=== PATIENT | female | born 1985 | race Two or more races ===

== ENCOUNTER 2016-07-13 12:22 | Emergency (ER) | payer MEDICAID ==
[2016-07-13] MEDS ORDERED: IBUPROFEN 800 MG TABLET PO ONE (12:40)
--- NOTE | 2016-07-13 12:49 | ER Document Report ---
ED Extremity Problem, Lower - General Chief Complaint: Ankle Pain Stated Complaint: RIGHT ANKLE PAIN Time Seen by Provider: 07/13/16 12:40 Mode of Arrival: Wheelchair Information source: Patient Notes: 30-year-old female presents to ED for pain in her right foot and ankle. 2 days ago with pain in her ankle and foot and this has progressed over the last 2 days so that now she is not able to walk it. She does have a history of psoriatic arthritis a history of a broken ankle in the past on the side TRAVEL OUTSIDE OF THE [place] IN LAST 30 DAYS: No - HPI Patient complains to provider of: Pain Location: Ankle, Foot Occurred: Other - 2 days Onset/Duration: Gradual, Worse Quality of pain: Achy, Throbbing Severity: Severe Pain Level: 5 Context: Other - What is going on she states she has not injured Recent injury: No Exacerbated by: Movement, Walking Relieved by: Nothing - Related Data Allergies/Adverse Reactions: No Known Allergies Allergy (Verified 03/24/13 11:58) Past Medical History - General Information source: Patient - Social History Smoking Status: Never Smoker Cigarette use (# per day): No Chew tobacco use (# tins/day): No Smoking Education Provided: No Frequency of alcohol use: None Drug Abuse: None Lives with: Family Family History: Reviewed & Not Pertinent Patient has suicidal ideation: No Patient has homicidal ideation: No - Past Medical History Cardiac Medical History: Reports: None Pulmonary Medical History: Reports: Hx Asthma EENT Medical History: Reports: None Neurological Medical History: Reports: None Endocrine Medical History: Reports: None Renal/ Medical History: Reports: None Malignancy Medical History: Reports: None GI Medical History: Reports: Hx Gastroesophageal Reflux Disease Musculoskeltal Medical History: Reports Hx Arthritis - psoriatic arthritis, Reports Hx Musculoskeletal Deformity Skin Medical History: Reports Hx Psoriasis Psychiatric Medical History: Reports: None Traumatic Medical History: Reports: Hx Fractures - right ankle Infectious Medical History: Reports: None Past Surgical History: Reports: Hx Cholecystectomy, Hx Orthopedic Surgery - ORIF right ankle -02/08/13 - Immunizations Hx Diphtheria, Pertussis, Tetanus Vaccination: Yes Review of Systems - Review of Systems Constitutional: No symptoms reported EENT: No symptoms reported Cardiovascular: No symptoms reported Respiratory: No symptoms reported Gastrointestinal: No symptoms reported Genitourinary: No symptoms reported Female Genitourinary: No symptoms reported Musculoskeletal: Ankle swelling - pain Skin: No symptoms reported Hematologic/Lymphatic: No symptoms reported Neurological/Psychological: No symptoms reported -: Yes All other systems reviewed and negative Physical Exam - Vital signs Vitals: Temp Pulse Resp BP Pulse Ox 98.2 F 104 H 16 143/90 H 98 07/13/16 12:24 07/13/16 12:24 07/13/16 12:24 07/13/16 12:24 07/13/16 12:24 Interpretation: Normal - General General appearance: Appears well, Alert - HEENT Head: Normocephalic, Atraumatic Eyes: Normal Pupils: PERRL - Respiratory Respiratory status: No respiratory distress Chest status: Nontender Breath sounds: Normal Chest palpation: Normal - Cardiovascular Rhythm: Regular Heart sounds: Normal auscultation Murmur: No - Abdominal Inspection: Normal Distension: No distension Bowel sounds: Normal Tenderness: Nontender Organomegaly: No organomegaly - Back Back: Normal, Nontender - Extremities General upper extremity: Normal inspection, Nontender, Normal color, Normal ROM , Normal temperature General lower extremity: Normal color, Normal temperature. No: Fariba's sign Ankle: Tender, Edema, Limited ROM, Unable to bear weight Foot: Tender, No evidence of FB - Neurological Neuro grossly intact: Yes Cognition: Normal Orientation: AAOx4 Umair Coma Scale Eye Opening: Spontaneous Umair Coma Scale Verbal: Oriented [place] Coma Scale Motor: Obeys Commands Umair Coma Scale Total: 15 Speech: Normal Motor strength normal: LUE, RUE, LLE, RLE Sensory: Normal - Psychological Associated symptoms: Normal affect, Normal mood - Skin Skin Temperature: Warm Skin Moisture: Dry Skin Color: Normal Course - Re-evaluation Re-evalutation: 07/13/16 14:11 X-rays discussed with patient and family. Patient was given a written report of the x-rays and instructed to follow-up with podiatry. Patient given instructions on foot and ankle exercises as well as use of inflammatories for her pain. - Vital Signs Vital signs: Temp Pulse Resp BP Pulse Ox 98.2 F 104 H 16 143/90 H 98 07/13/16 12:24 07/13/16 12:24 07/13/16 12:24 07/13/16 12:24 07/13/16 12:24 - Diagnostic Test Radiology reviewed: Image reviewed, Reports reviewed Discharge - Discharge Clinical Impression: Heel spur Qualifiers: Laterality: right Qualified Code(s): M77.31 - Calcaneal spur, right foot Foot arch pain Qualifiers: Laterality: right Qualified Code(s): M79.671 - Pain in right foot Condition: Stable Disposition: HOME, SELF-CARE Instructions: Exercises for the Foot Muscles ([facility]) Additional Instructions: Plantar Fasciitis or Heel Spur Plantar fasciitis is an inflammation of a ligament on the underside of the foot. It can be caused by injury, overuse such as running, or poorly fitting shoes. There may be a bone spur on the heel if inflammation has persisted a long time. Plantar fasciitis is treated with stretching exercises and antiinflammatory medicine. More severe cases may require injection of cortisone. It may take several weeks to get better. If nothing gives relief, an operation to remove the heel spur may help. Call or return if there is redness, increasing pain, swelling, fever, or any other new symptoms. Anti-Inflammatory Medication You have received a prescription for an antiinflammatory agent. This is an excellent, safe drug for pain control. In addition, it has potent antiinflammatory effects which are beneficial, especially in the treatment of injuries, arthritis, or tendonitis. It's best to take this medicine with food. Persons with ulcer disease or allergy to aspirin should notify their physician of this before taking this drug. Take the medication exactly as prescribed. Don't take additional doses unless instructed to do so by your doctor. If you develop wheezing, shortness of breath, hives, faintness, stomach pain, vomiting, or dark black stools, return for re-evaluation at once. Ankle Exercise Program To restore the ankle to normal, it's important to strengthen the muscles that support it -- especially those that lift the foot upward. Good muscle tone will keep stress off the injury while it heals. EARLY - Once the doctor allows you to walk on the ankle, you can begin. Lean your back against a wall. Standing on your heels, lift the balls of both feet up, hold a second, then back down. Work up to 100 repetitions. Next, using the wall for balance, stand on one foot. Lift the heel up, then down. Work up to 100 repetitions for each foot. BALANCE TRAINING - To retrain the ankle to react to "tipping", stand on one foot for two minutes. Go from flat-footed to standing on the toes and back again slowly. Repeat with the other foot. LATER - When your ankle has regained full motion and you're walking pain- free, begin exercise against resistance. In a sitting position, pull the top of the foot towards you against resistance 20 times. Use either elastic material or a weight attached to the toes. Swing the knee so the foot is to the side of the body, and repeat. FOLLOW-UP CARE: If you have been referred to a physician for follow-up care, call the physician s office for an appointment as you were instructed or within the next two days. If you experience worsening or a significant change in your symptoms, notify the physician immediately or return to the Emergency Department at any time for re-evaluation. Forms: Elevated Blood Pressure, Return to Work Referrals: FRANCIS HDZ MD [Primary Care Provider] - Follow up as needed PRESLEY MENSAH DPM [ACTIVE STAFF] - Follow up as needed
--- NOTE | 2016-07-13 13:24 | RADIOLOGY REPORT (SQ) ---
EXAM DESCRIPTION: FOOT RIGHT COMPLETE COMPLETED DATE/TIME: 07/13/2016 1:11 pm REASON FOR STUDY: pain and injury COMPARISON: None. NUMBER OF VIEWS: Three views. TECHNIQUE: AP, lateral and oblique radiographic images acquired of the right foot. LIMITATIONS: None. FINDINGS: MINERALIZATION: Normal. BONES: No acute fracture or dislocation. Heel spur. No worrisome bone lesions. JOINTS: No effusions. SOFT TISSUES: No soft tissue swelling. No foreign body. OTHER: No other significant finding. IMPRESSION: HEEL SPUR. NO RADIOGRAPHIC EVIDENCE OF ACUTE INJURY. TECHNICAL DOCUMENTATION: JOB ID: [id number]- All Rights Reserved
--- NOTE | 2016-07-13 13:25 | RADIOLOGY REPORT (SQ) ---
EXAM DESCRIPTION: ANKLE RIGHT COMPLETE COMPLETED DATE/TIME: 07/13/2016 1:11 pm REASON FOR STUDY: pain and injury COMPARISON: 02/07/2013. NUMBER OF VIEWS: Three views. TECHNIQUE: AP, lateral, and oblique radiographic images acquired of the right ankle. LIMITATIONS: None. FINDINGS: MINERALIZATION: Normal. BONES: No acute fracture or dislocation. Hardware in the distal tibia fibula. No worrisome bone les ions. JOINTS: No effusions. SOFT TISSUES: No soft tissue swelling. No foreign body. OTHER: No other significant finding. IMPRESSION: SURGICAL CHANGES WITH HARDWARE. NO APPARENT ACUTE FINDINGS. TECHNICAL DOCUMENTATION: JOB ID: [id number] [employer]- All Rights Reserved
[2016-07-13 14:40] VITALS: BP 136/89
== END 2016-07-13 14:18 | disposition home or self-care (01) ==
LOC: ER 12:22
DX: M77.31 Calcaneal spur, right foot (principal); L40.50 Arthropathic psoriasis, unspecified; M79.671 Pain in right foot; M25.571 Pain in right ankle and joints of right foot; J45.909 Unspecified asthma, uncomplicated; Z87.81 Personal history of (healed) traumatic fracture; Z98.890 Other specified postprocedural states
CPT/HCPCS: 99283

== ENCOUNTER 2016-12-12 20:45 | Emergency (ER) | payer MEDICAID ==
[2016-12-12 21:12] VITALS: BP 147/98
[2016-12-12] MEDS ORDERED: LIDOCAINE 2% VISCOUS SOLN 20 ML UDCUP PO ONE (22:12)
--- NOTE | 2016-12-12 22:16 | ER Document Report ---
HPI - HPI Pain Level: 5 Notes: Patient is a 30-year-old female who presents ED complaining of dental pain to # 142-3 days. Patient states that she has had issues with this tooth before he is a filling fell out. Patient has a dental appointment scheduled for next Thursday. She has not noticed any obvious abscess or drainage. Patient states that she has noticed some swelling to the area however. She still eating and drinking without difficulties. She is using [id number] meds for her symptoms. She denies any drug allergies or other significant past medical history. Patient denies any IV drug use. Denies any history of abscesses. Denies any headache, fever, head injury, neck pain, hoarseness, drooling, URI, sore throat, chest pain, palpitations, syncope, cough, shortness of breath, wheeze, dyspnea, abdominal pain, nausea/vomiting/diarrhea, urinary retention, dysuria, hematuria, or rash. - ROS Notes: REVIEW OF SYSTEMS: CONSTITUTIONAL : Denies fever, chills, or sweats. Denies recent illness. EENT: see hpi CARDIOVASCULAR: Denies chest pain. Denies palpitations or racing or irregular heart beat. Denies ankle edema. RESPIRATORY: Denies cough, cold, or chest congestion. Denies shortness of breath, difficulty breathing, or wheezing. GASTROINTESTINAL: Denies abdominal pain or distention. Denies nausea, vomiting , or diarrhea. Denies blood in vomitus, stools, or per rectum. Denies black, tarry stools. Denies constipation. GENITOURINARY: Denies difficulty urinating, painful urination, burning, frequency, blood in urine, or discharge. MUSCULOSKELETAL: Denies back or neck pain or stiffness. Denies joint pain or swelling. SKIN: Denies rash, lesions or sores. NEUROLOGICAL: Denies confusion or altered mental status. Denies passing out or loss of consciousness. Denies dizziness or lightheadedness. Denies headache. Denies weakness or paralysis or loss of use of either side. Denies problems with gait or speech. Denies sensory loss, numbness, or tingling. Denies seizures. PSYCHIATRIC: Denies anxiety or stress. Denies depression, suicidal ideation, or homicidal ideation. ALL OTHER SYSTEMS REVIEWED AND NEGATIVE. Dictation was performed using [employer] voice recognition software - REPRODUCTIVE Reproductive: DENIES: : - DERM Skin Color: Normal, [place] Past Medical History - Social History Smoking Status: Unknown if Ever Smoked Family History: Reviewed & Not Pertinent Patient has suicidal ideation: No Patient has homicidal ideation: No Pulmonary Medical History: Reports: Hx Asthma Denies: Hx Tuberculosis Renal/ Medical History: Denies: Hx Peritoneal Dialysis GI Medical History: Reports: Hx Gastroesophageal Reflux Disease Musculoskeltal Medical History: Reports Hx Arthritis - psoriatic arthritis, Reports Hx Musculoskeletal Deformity Skin Medical History: Reports Hx Psoriasis Traumatic Medical History: Reports: Hx Fractures - right ankle Past Surgical History: Reports: Hx Cholecystectomy, Hx Orthopedic Surgery - ORIF right ankle -02/08/13 - Immunizations Hx Diphtheria, Pertussis, Tetanus Vaccination: Yes Vertical Provider Document - CONSTITUTIONAL Agree With Documented VS: Yes Notes: PHYSICAL EXAMINATION: GENERAL: Well-appearing, well-nourished and in no acute distress. HEAD: Atraumatic, normocephalic. EYES: Pupils equal round and reactive to light, extraocular movements intact, sclera anicteric, conjunctiva are normal. ENT: EAC clear b/l. TM's intact b/l without erythema, fluid, or perforation. Nares patent and without discharge. oropharynx clear without exudates. No tonsilar hypertrophy or erythema. Moist mucous membranes. No sinus tenderness. Uvula midline. No palatine shift. No tongue protrusion. No respiratory compromise. Mouth: Poor dentition. + mild decay and mild gingivitis. No obvious abscess or discharge noted. No facial swelling. + tenderness to tooth/gum #14. NECK: Normal range of motion, supple without lymphadenopathy. No rigidity/ meningismus. LUNGS: Breath sounds clear to auscultation bilaterally and equal. No wheezes rales or rhonchi. HEART: Regular rate and rhythm without murmurs, rubs, gallops. NEUROLOGICAL: Cranial nerves grossly intact. Normal speech, normal gait. Normal sensory, motor exams PSYCH: Normal mood, normal affect. SKIN: Warm, Dry, normal turgor, no rashes or lesions noted. - INFECTION CONTROL TRAVEL OUTSIDE OF THE [place] IN LAST 30 DAYS: No - RESPIRATORY O2 Sat by Pulse Oximetry: 98 Course - Re-evaluation Re-evalutation: 12/12/16 22:14 Patient is an afebrile, well-hydrated, 30-year-old female who presents the ED with dental pain, infection versus nerve etiology. Vitals are stable. PE is otherwise unremarkable at this time. Viscous lidocaine given today. I will send her home with a prescription for penicillin as well. Low suspicion for any meningitis, sepsis, peritonsillar/pharyngeal abscess, respiratory compromise , Mani's, temporal arteritis, or other emergent systemic condition at this time. Patient is aware this condition can change from initial presentation and she needs to monitor symptoms closely. Conservative measures otherwise for symptoms. Keep dental appointment next thursday. Recheck with your PCM next week as well. Return to the ED with any worsening/concerning symptoms otherwise as reviewed in discharge. Patient is in agreement. - Vital Signs Vital signs: Temp Pulse Resp BP Pulse Ox 98.5 F 86 12 147/98 H 98 12/12/16 21:08 12/12/16 21:08 12/12/16 21:08 12/12/16 21:08 12/12/16 21:08 Discharge - Discharge Clinical Impression: Toothache Condition: Stable Disposition: HOME, SELF-CARE Instructions: [facility], Toothache ([facility]), Penicillin V K ([facility]), Dentist Additional Instructions: Page and floss twice daily Maintain fluid intake Take antibiotics as directed Mouthwash, salt water gargles, peroxide rinse as needed Tylenol/ibuprofen as needed Recheck with PCM in 3-5 days keep appointment with dentist next thursday Return to the ED with any worsening symptoms and/or development of fever, headache, facial swelling, swelling of lips/tongue/throat, trouble swallowing, drooling, hoarseness, neck pain/stiffness, chest pain, palpitations, syncope, shortness of breath, trouble breathing, abdominal pain, n/v/d, numbness/tingling , or other worsening symptoms that are concerning to you. Prescriptions: Penicillin V Potassium [Penicillin Vk 500 mg Tablet] 500 mg PO BID #20 tablet Referrals: BELL HDZ DO [Primary Care Provider] - Follow up in 3-[address] [facility] [Provider Group] - Follow up as needed
== END 2016-12-12 22:44 | disposition home or self-care (01) ==
LOC: ER 20:45
DX: K02.9 Dental caries, unspecified (principal); K05.10 Chronic gingivitis, plaque induced; K08.89 Other specified disorders of teeth and supporting structures; J45.909 Unspecified asthma, uncomplicated
CPT/HCPCS: 99282; J3490

== ENCOUNTER 2017-01-10 22:42 | Emergency (ER) | payer MEDICAID ==
--- NOTE | 2017-01-10 23:36 | ER Document Report ---
HPI - HPI Patient complains to provider of: numbness in left arm, sharp pain in chest Onset: Other - 2 weeks Onset/Duration: Intermittent Pain Level: 4 Context: 31 obese non hormone ex smoker, non drugs, rare etoh, unemployed female with hx asthma, non dm, non htn came to ER, dropped off by friend due to whole left arm numbness that comes on at 12:00 daily, sometimes when she wakes up. Went away 4 times during the past 2 weeks spontaneously. Also c/o left upper restrosternal sharp chest pain since 12:00 today sitting watching a movie. Worse with breathing deep. surgieries: right ankle, fx repair. Came in tonight because the chest pain got worse at 4 pm while cooking dinner. No fever. No cough. No recent illness. FH: DM, aunt stents age 61. She wants to make sure she is not having a "silent heart attack". - REPRODUCTIVE Reproductive: DENIES: : Past Medical History - Social History Family History: Reviewed & Not Pertinent Pulmonary Medical History: Reports: Hx Asthma Denies: Hx Tuberculosis Renal/ Medical History: Denies: Hx Peritoneal Dialysis GI Medical History: Reports: Hx Gastroesophageal Reflux Disease Musculoskeltal Medical History: Reports Hx Arthritis - psoriatic arthritis, Reports Hx Musculoskeletal Deformity Skin Medical History: Reports Hx Psoriasis Traumatic Medical History: Reports: Hx Fractures - right ankle Past Surgical History: Reports: Hx Cholecystectomy, Hx Orthopedic Surgery - ORIF right ankle -02/08/13 - Immunizations Hx Diphtheria, Pertussis, Tetanus Vaccination: Yes Vertical Provider Document - INFECTION CONTROL TRAVEL OUTSIDE OF THE [place] IN LAST 30 DAYS: No
[2017-01-11] MEDS ORDERED: ASPIRIN 81 MG TABLET, CHEWABLE PO ONE (00:08)
--- NOTE | 2017-01-11 00:09 | ER Document Report ---
ED General - General Chief Complaint: Weakness Stated Complaint: CHEST PAIN,NUMB LEFT ARM Time Seen by Provider: 01/10/17 23:36 Mode of Arrival: Ambulatory Information source: Patient Notes: 31 obese non hormone ex smoker, non drugs, rare etoh, unemployed female with hx asthma, non dm, non htn came to ER, dropped off by friend due to whole left arm numbness that comes on at 12:00 daily, sometimes when she wakes up. Went away 4 times during the past 2 weeks spontaneously. Also c/o left upper restrosternal sharp chest pain since 12:00 today sitting watching a movie. Worse with breathing deep, movement. surgieries: right ankle, fx repair. Came in tonight because the chest pain got worse at 4 pm while cooking dinner. No fever. No cough. No shortness of breath. No recent illness. FH: DM, aunt stents age 61. She wants to make sure she is not having a "silent heart attack". PCP: DR. Tristan Hdz. TRAVEL OUTSIDE OF THE [place] IN LAST 30 DAYS: No - Related Data Allergies/Adverse Reactions: No Known Allergies Allergy (Verified 01/11/17 01:39) Past Medical History - General Information source: Patient - Social History Smoking Status: Former Smoker Frequency of alcohol use: None Drug Abuse: None Lives with: Family Family History: Reviewed & Not Pertinent Pulmonary Medical History: Reports: Hx Asthma Denies: Hx Tuberculosis Renal/ Medical History: Denies: Hx Peritoneal Dialysis GI Medical History: Reports: Hx Gastroesophageal Reflux Disease Musculoskeltal Medical History: Reports Hx Arthritis - psoriatic arthritis, Reports Hx Musculoskeletal Deformity Skin Medical History: Reports Hx Psoriasis Traumatic Medical History: Reports: Hx Fractures - right ankle Past Surgical History: Reports: Hx Cholecystectomy, Hx Orthopedic Surgery - ORIF right ankle -02/08/13 - Immunizations Hx Diphtheria, Pertussis, Tetanus Vaccination: Yes Review of Systems - Review of Systems Constitutional: No symptoms reported EENT: No symptoms reported Cardiovascular: See HPI Respiratory: No symptoms reported Gastrointestinal: No symptoms reported Genitourinary: No symptoms reported Female Genitourinary: No symptoms reported Musculoskeletal: No symptoms reported Skin: No symptoms reported Hematologic/Lymphatic: No symptoms reported Neurological/Psychological: See HPI Physical Exam - Vital signs Vitals: Temp Pulse Resp BP Pulse Ox 99.2 F 74 18 146/84 H 96 01/10/17 22:54 01/10/17 22:54 01/10/17 22:54 01/10/17 22:54 01/10/17 22:54 Interpretation: Normal - General General appearance: Appears well, Alert In distress: None Notes: obese - HEENT Head: Normocephalic, Atraumatic Eyes: Normal Conjunctiva: Normal Pupils: PERRL Mucous membranes: Normal Pharynx: Normal Neck: Supple - tender left trapezius and adjacent to cervical 5-6 - Respiratory Respiratory status: No respiratory distress Chest status: Tender - upper left chest wall, just above and below the clavicle Breath sounds: Normal Chest palpation: Normal - Cardiovascular Rhythm: Regular Heart sounds: Normal auscultation Murmur: No - Abdominal Inspection: Normal Distension: No distension Bowel sounds: Normal Tenderness: Nontender Organomegaly: No organomegaly - Back Back: Normal, Nontender. No: Tender - Extremities General upper extremity: Normal inspection, Nontender, Normal color, Normal ROM , Normal temperature General lower extremity: Normal inspection, Nontender, Normal color, Normal ROM , Normal temperature, Normal weight bearing. No: Fariba's sign - Neurological Neuro grossly intact: Yes Cognition: Normal Orientation: AAOx4 Umair Coma Scale Eye Opening: Spontaneous Umair Coma Scale Verbal: Oriented Umair Coma Scale Motor: Obeys Commands Umair Coma Scale Total: 15 Speech: Normal Motor strength normal: LUE, RUE, LLE, RLE Sensory: Normal - Psychological Associated symptoms: Normal affect, Normal mood - Skin Skin Temperature: Warm Skin Moisture: Dry Skin Color: Normal Skin irregularity: negative: Rash Course - Re-evaluation Re-evalutation: 01/11/17 01:53 labs are normal; EKG NSR, no acute change. Labs normal. Chest xray is negative. consult dr. Brown for disposition. OK to go home. Pt very tender left trapezius, suproclavicular, base of neck c5-6 area. showed her how to do range of motion, heat. motrin. Now tingling is only in 3,4,5 fingers-ulnar nerve and tender along medial left arm to elbow - Vital Signs Vital signs: Temp Pulse Resp BP Pulse Ox 99.2 F 74 21 H 125/82 100 01/10/17 22:54 01/10/17 22:54 01/11/17 01:27 01/11/17 01:27 01/11/17 01:27 - Laboratory Result Diagrams: 01/11/17 00:30 01/11/17 00:30 Laboratory results interpreted by me: 01/11/17 01/11/17 00:30 00:30 MCV 79 L MCH 26.5 L Creatine Kinase 201 H Discharge - Discharge Clinical Impression: left arm parathesia, upper left chest pain/tenderness, left trapezius tenderness, possible cervical radiculoapthy Condition: Good Disposition: HOME, SELF-CARE Instructions: Numbness or Paresthesia ([facility]), Neck Injury (Cervical Strain) ([facility] ), Chest Wall Pain ([facility]) Additional Instructions: warm compress motrin see dr. hdz on thursday for recheck to er if worse Please complete the patient satisfaction survey if you get one, and return it.. If you do not receive a survey, then you can go to the [facility] website, [email or web address] and place your comments about your very good care. Thank you very much. It was a pleasure being your medical provider today. Prescriptions: Ibuprofen [Motrin 800 mg Tablet] 800 mg PO Q8HP PRN #30 tablet PRN Reason: Referrals: TRISTAN HDZ MD [ACTIVE STAFF] - 01/12/17
[2017-01-11 00:43] LABS: ABSOLUTE BASOPHILS # (AUTO) 0.1 10^3/uL (0.0-0.2); ABSOLUTE EOSINOPHILS # (AUTO) 0.2 10^3/uL (0.0-0.6); ABSOLUTE LYMPHOCYTES (AUTO) 2.6 10^3/uL (0.5-4.7); ABSOLUTE MONOCYTES (AUTO) 0.7 10^3/uL (0.1-1.4); ABSOLUTE NEUT (AUTO) 5.2 10^3/uL (1.7-8.2); BASOPHILS % (AUTO) 0.7 % (0-2); EOSINOPHILS % (AUTO) 2.6 % (0-6); HEMATOCRIT 37.7 % (36.0-47.0); HEMOGLOBIN 12.6 g/dL (12.0-15.5); HGB HCT DIFFERENCE 0.1; LYMPHOCYTES % (AUTO) 30.1 % (13-45); MEAN CORPUSCULAR HEMOGLOBIN 26.5 pg (27.0-33.4); MEAN CORPUSCULAR HGB CONC 33.5 g/dL (32.0-36.0); MEAN CORPUSCULAR VOLUME 79 fl (80-97); RED BLOOD COUNT 4.78 10^6/uL (3.72-5.28); RED CELL DISTRIBUTION WIDTH 13.9 % (11.5-14.0); SEGMENTED NEUTROPHILS % (AUTO) 58.6 % (42-78); WHITE BLOOD COUNT 8.8 10^3/uL (4.0-10.5)
--- NOTE | 2017-01-11 00:46 | RADIOLOGY REPORT (SQ) ---
EXAM DESCRIPTION: CHEST SINGLE VIEW COMPLETED DATE/TIME: 01/11/2017 12:37 am REASON FOR STUDY: chest pain COMPARISON: None. EXAM PARAMETERS: NUMBER OF VIEWS: One view. TECHNIQUE: Single frontal radiographic view of the chest acquired. RADIATION DOSE: NA LIMITATIONS: None. FINDINGS: LUNGS AND PLEURA: No opacities, masses or pneumothorax. No pleural effusion. MEDIASTINUM AND HILAR STRUCTURES: No masses. Contour normal. HEART AND VASCULAR STRUCTURES: Heart normal in size. Normal vasculature. BONES: No acute findings. HARDWARE: None in the chest. OTHER: No other significant finding. IMPRESSION: NO ACUTE RADIOGRAPHIC FINDING IN THE CHEST. TECHNICAL DOCUMENTATION: JOB ID: [id number] [employer]- All Rights Reserved
[2017-01-11 01:07] LABS: ALANINE AMINOTRANSFERASE 43 U/L (9-52); ALBUMIN 4.1 g/dL (3.5-5.0); ALKALINE PHOSPHATASE 69 U/L (38-126); ANION GAP 12 (5-19); ASPARTATE AMINO TRANSFERASE 21 U/L (14-36); BILIRUBIN,DIRECT 0.3 mg/dL (0.0-0.4); BILIRUBIN,TOTAL 0.3 mg/dL (0.2-1.3); BLOOD UREA NITROGEN 16 mg/dL (7-20); CALCIUM 9.4 mg/dL (8.4-10.2); CARBON DIOXIDE 25 mmol/L (22-30); CHLORIDE 105 mmol/L (98-107); CREATINE KINASE 201 U/L (30-135); CREATININE RESULT 0.79 mg/dL (0.52-1.25); GLUCOSE 99 mg/dL (75-110); SODIUM 142.3 mmol/L (137-145)
[2017-01-11 01:19] LABS: CREATINE KINASE MB 1.43 ng/mL (<4.55)
[2017-01-11 01:20] LABS: TROPONIN I < 0.012 ng/mL
[2017-01-11] MEDS ORDERED: ACETAMINOPHEN 325 MG TABLET PO ONE (02:08)
[2017-01-11 02:35] VITALS: BP 137/91
--- NOTE | 2017-01-12 06:01 | EKG REPORT ---
SEVERITY:- BORDERLINE ECG - SINUS RHYTHM BORDERLINE T ABNORMALITIES, INFERIOR LEADS : Confirmed by: Samantha Israel MD 12-Jan-2017 06:01:20
== END 2017-01-11 02:24 | disposition home or self-care (01) ==
LOC: ER 22:42
DX: R20.0 Anesthesia of skin (principal); R53.1 Weakness; R07.89 Other chest pain; E66.9 Obesity, unspecified; Z90.49 Acquired absence of other specified parts of digestive tract
CPT/HCPCS: 93005; 99284; 36415; 82553; 82550; 85025; 80053; 84484; 71010; 93010; J3490

== ENCOUNTER 2017-03-13 08:10 | Emergency (ER) | payer MEDICAID ==
[2017-03-13] MEDS ORDERED: PROCHLORPERAZINE EDISYLATE INJ 10 MG/2 ML VIAL IV ONE (08:48)
[2017-03-13] MEDS ORDERED: DIPHENHYDRAMINE HCL 50 MG/ML VIAL IV ONE (08:48)
[2017-03-13] MEDS ORDERED: KETOROLAC TROMETHAMINE INJ/PF 30 MG/1 ML SDV IV ONE (08:48)
--- NOTE | 2017-03-13 08:51 | ER Document Report ---
HPI - HPI Pain Level: 3 Notes: Patient is a 31-year-old female who presents to the ED complaining of a frontal headache over the last 8 days. Patient states that she does have a history of migraines and that on occasion his headache does feel like her migraine and sometimes it does not. Patient states that she does have some light sensitivity and she did have nausea yesterday without any vomiting. Patient states that she is otherwise eating and drinking without any difficulties. She is urinating normally having normal bowel movements. Patient still able to perform her ADLs without any difficulties. The headache has been intermittent. She denies any drug allergies. Patient states that she is a former smoker and denies any IV drug use. Denies any headache, fever, head injury, neck pain , changes in vision/speech/mentation/hearing, URI, sore throat, chest pain, palpitations, syncope, cough, shortness of breath, wheeze, dyspnea, abdominal pain, nausea/vomiting/diarrhea, urinary retention, dysuria, hematuria, loss of control of bowel or bladder, numbness/tingling, muscle paralysis/weakness, or rash. - ROS Systems Reviewed and Negative: Yes All other systems reviewed and negative - NEURO Neurology: REPORTS: Headache - X 8 days, Vision blurred, Dizzinesss / Vertigo. DENIES: Weakness - REPRODUCTIVE Reproductive: DENIES: : Past Medical History - Social History Smoking Status: Former Smoker Chew tobacco use (# tins/day): No Frequency of alcohol use: Occasional Drug Abuse: None Family History: Reviewed & Not Pertinent Patient has suicidal ideation: No Patient has homicidal ideation: No Pulmonary Medical History: Reports: Hx Asthma Denies: Hx Tuberculosis Renal/ Medical History: Denies: Hx Peritoneal Dialysis GI Medical History: Reports: Hx Gastroesophageal Reflux Disease Musculoskeltal Medical History: Reports Hx Arthritis - psoriatic arthritis, Reports Hx Musculoskeletal Deformity Skin Medical History: Reports Hx Psoriasis Traumatic Medical History: Reports: Hx Fractures - right ankle Past Surgical History: Reports: Hx Cholecystectomy, Hx Orthopedic Surgery - ORIF right ankle -02/08/13 - Immunizations Hx Diphtheria, Pertussis, Tetanus Vaccination: Yes Vertical Provider Document - CONSTITUTIONAL Agree With Documented VS: Yes Notes: PHYSICAL EXAMINATION: GENERAL: Well-appearing, well-nourished and in no acute distress. A&Ox4. Answers questions appropriately. Sitting comfortably with headphones in and staring at her large ipad/tablet screen. HEAD: Atraumatic, normocephalic. Non-tender. EYES: Pupils equal round and reactive to light, extraocular movements intact, sclera anicteric, conjunctiva are normal. No nystagmus ENT: EAC clear b/l. TM's intact b/l without erythema, fluid, or perforation. Nares patent and without discharge. oropharynx clear without exudates. No tonsilar hypertrophy or erythema. Moist mucous membranes. No sinus tenderness. NECK: Normal range of motion, supple without lymphadenopathy. No rigidity. No midline tenderness. Spurling negative. LUNGS: Breath sounds clear to auscultation bilaterally and equal. No wheezes rales or rhonchi. HEART: Regular rate and rhythm without murmurs, rubs, gallops. ABDOMEN: Soft, nontender, nondistended abdomen. No guarding, no rebound. No masses appreciated. Normal bowel sounds present. No CVA tenderness bilaterally. Musculoskeletal: Ext b/l: FROM to passive/active. Strength 5+/5. No focal deficits noted. Back: FROM to passive/active. Strength 5+/5. No vertebral point tenderness, stepoffs, or deformities. No other bony tenderness or ecchymosis. Extremities: No cyanosis, clubbing, or edema b/l. Peripheral pulses 2+. Capillary refill less than 2 seconds. NEUROLOGICAL: NIH 0. GCS 15. MMSE intact. Cranial nerves grossly intact. Normal speech, normal gait. Normal sensory, motor exams. Reflexes 2+ b/l. EMRE' s negative. Pronator drift negative. Heel/vogt, finger/nose wnl. Walking on heels/toes and heel to toe wnl. PSYCH: Normal mood, normal affect. SKIN: Warm, Dry, normal turgor, no rashes or lesions noted. - INFECTION CONTROL TRAVEL OUTSIDE OF THE [place] IN LAST 30 DAYS: No - RESPIRATORY O2 Sat by Pulse Oximetry: 97 Course - Re-evaluation Re-evalutation: 03/13/17 09:31 Patient is an afebrile, well-hydrated, 31-year-old female who presents to the ED with a headache, suspect benign and probably relation to her migraines. Vitals are stable. PE is otherwise unremarkable for any focal neurological deficits. No labs or imaging warranted at this time. Saline lock was placed and Benadryl, Toradol, and Compazine were given. Patient had significant relief of her headache within 30 minutes of medication. Patient is tolerating p.o. without any difficulties. Patient appears well. Patient does have a ride home. Low suspicion for any acute glaucoma, temporal arteritis, meningitis, intracranial hemorrhage, ischemic stroke, or fracture at this time. Patient is aware that his condition can change from initial presentation and that he needs to monitor symptoms closely for any acute changes. Conservative measures for symptoms. Recheck with your PCM in 3-5 days. Consider consult with a neurologist. Return to the ED with any worsening/concerning symptoms otherwise as reviewed discharge. Patient is in agreement. - Vital Signs Vital signs: Temp Pulse Resp BP Pulse Ox 98.4 F 78 16 120/64 97 03/13/17 08:18 03/13/17 08:18 03/13/17 08:18 03/13/17 08:18 03/13/17 08:18 Discharge - Discharge Clinical Impression: Headache Qualifiers: Headache type: unspecified Headache chronicity pattern: acute headache Intractability: not intractable Qualified Code(s): R51 - Headache Condition: Stable Disposition: HOME, SELF-CARE Instructions: Headache ([facility]) Additional Instructions: Rest, cool compress Tylenol/ibuprofen as needed Moist heat and massage may help F/u with your PCP in 3-5 days for a recheck Consider consult(s) with Orthopedics/physical therapy for ongoing/worsening symptoms Return to the ED with any worsening symptoms and/or development of fever, worsening headache, changes in mentation/behavior/speech/vision, chest pain, palpitations, syncope, shortness of breath, trouble breathing, abdominal pain, n /v/d, muscle weakness/paralysis, numbness/tingling, swelling, redness, or other worsening symptoms that are concerning to you. Referrals: FRANCIS HDZ MD [Primary Care Provider] - Follow up in 3-5 days DUC GUZMAN MD [ACTIVE STAFF] - Follow up as needed
[2017-03-13 09:54] VITALS: BP 115/86
== END 2017-03-13 09:54 | disposition home or self-care (01) ==
LOC: ER 08:10
DX: R51 Headache (principal); R11.0 Nausea; Z90.49 Acquired absence of other specified parts of digestive tract
CPT/HCPCS: 99283; 96374; 96375; J1200; J1885; J0780

== ENCOUNTER → 2018-08-13 | Outpatient (CLI) | payer MEDICAID ==
[2018-08-13 14:20] LABS: BACTERIA (WET MOUNT) 4+ BACTERIA SEEN; EPITHELIALS (WET MOUNT) 4+ EPITHELIALS SEEN; RBCS (WET MOUNT) 1+ RBCS SEEN; T.VAGINALIS (WET MOUNT) NO TRICHOMONAS SEEN; WBCS (WET MOUNT) 4+ WBCS SEEN; YEAST (WET MOUNT) NO YEAST SEEN
== END ==
LOC: LAB 14:11
PROVIDERS: ATTEND Nurse Practitioner Family
DX: N89.8 Other specified noninflammatory disorders of vagina (principal); R82.71 Bacteriuria
CPT/HCPCS: 87086; 87210

== ENCOUNTER 2018-12-03 15:05 | Emergency (ER) | payer MEDICAID ==
[2018-12-03] MEDS ORDERED: PREDNISONE 20 MG TABLET PO ONE (15:53)
[2018-12-03] MEDS ORDERED: IPRATROPIUM/ALBUTEROL 0.5-2.5 MG/3 ML AMPUL NEB ONE ×2 (15:53→20:58)
--- NOTE | 2018-12-03 15:53 | ER Document Report ---
ED Medical Screen (RME) - General Chief Complaint: Shortness Of Breath Stated Complaint: DIFFICULTY BREATHING Time Seen by Provider: 12/03/18 15:49 Primary Care Provider: CLEMENTINA HAWKINS FNP-C [Primary Care Provider] - Follow up as needed Mode of Arrival: Ambulatory Information source: Patient Notes: 32-year-old female presented to ED for complaint of cough cold congestion with history of asthma shortness of breath and chest pain. She states she has been using her albuterol and Pulmicort since Thursday and she is not getting any better. She states she has not been to her doctor since this started. She states they told her to treat treated and then come in. She states last menstrual cycle was the beginning of November. I have greeted and performed a rapid initial assessment of this patient. A comprehensive ED assessment and evaluation of the patient, analysis of test results and completion of medical decision making process will be conducted by a n additional ED providers. TRAVEL OUTSIDE OF THE [place] IN LAST 30 DAYS: No - Related Data Allergies/Adverse Reactions: No Known Allergies Allergy (Verified 03/13/17 08:12) Past Medical History Pulmonary Medical History: Reports: Hx Asthma Denies: Hx Tuberculosis Renal/ Medical History: Denies: Hx Peritoneal Dialysis GI Medical History: Reports: Hx Gastroesophageal Reflux Disease Musculoskeltal Medical History: Reports Hx Arthritis - psoriatic arthritis, Reports Hx Musculoskeletal Deformity Skin Medical History: Reports Hx Psoriasis Traumatic Medical History: Reports: Hx Fractures - right ankle Past Surgical History: Reports: Hx Cholecystectomy, Hx Orthopedic Surgery - ORIF right ankle -02/08/13 - Immunizations Hx Diphtheria, Pertussis, Tetanus Vaccination: Yes Physical Exam - Vital signs Vitals: Temp Pulse Resp BP Pulse Ox 98.4 F 105 H 24 H 140/92 H 97 12/03/18 15:31 12/03/18 15:31 12/03/18 15:31 12/03/18 15:31 12/03/18 15:31 Course - Vital Signs Vital signs: Temp Pulse Resp BP Pulse Ox 98.4 F 105 H 24 H 140/92 H 97 12/03/18 15:31 12/03/18 15:31 12/03/18 15:31 12/03/18 15:31 12/03/18 15:31 Doctor's Discharge - Discharge Referrals: SHRUTHI,CLEMENTINA A, TASSEL SNIPPER-C [Primary Care Provider] - Follow up as needed
--- NOTE | 2018-12-03 17:21 | RADIOLOGY REPORT (SQ) ---
EXAM DESCRIPTION: CHEST 2 VIEWS COMPLETED DATE/TIME: 12/03/2018 5:10 pm REASON FOR STUDY: cough congestion tight COMPARISON: 01/11/2017 EXAM PARAMETERS: NUMBER OF VIEWS: two views TECHNIQUE: Digital Frontal and Lateral radiographic views of the chest acquired. RADIATION DOSE: NA LIMITATIONS: none FINDINGS: LUNGS AND PLEURA: No opacities, masses or pneumothorax. No pleural effusion. MEDIASTINUM AND HILAR STRUCTURES: No masses or contour abnormalities. HEART AND VASCULAR STRUCTURES: Heart normal size. No evidence for failure. BONES: No acute findings. HARDWARE: None in the chest. OTHER: No other significant finding. IMPRESSION: NO ACUTE RADIOGRAPHIC FINDING IN THE CHEST. TECHNICAL DOCUMENTATION: JOB ID: [id number]- All Rights Reserved Reading location - IP/workstation name: [email or web address]
[2018-12-03] MEDS ORDERED: AZITHROMYCIN 250 MG TABLET PO ONE (20:58)
--- NOTE | 2018-12-03 21:02 | ER Document Report ---
HPI - HPI Time Seen by Provider: 12/03/18 15:49 Pain Level: Denies Notes: Patient is a 32-year-old female with past medical history of asthma and prediabetes presenting to the emergency department with 3-day history of cough, congestion, fever, chills and wheezing. Patient reports she has been using her albuterol and Pulmicort since Thursday without relief. Patient reports cough worse at night. Patient denies any nausea, vomiting or diarrhea. - RESPIRATORY Respiratory: REPORTS: Trouble Breathing - wheezing bilat lobes - REPRODUCTIVE LMP: 11/16/18 Reproductive: DENIES: : Past Medical History - General Information source: Patient - Social History Smoking Status: Never Smoker Frequency of alcohol use: None Drug Abuse: None Family History: Reviewed & Not Pertinent Patient has suicidal ideation: No Patient has homicidal ideation: No Pulmonary Medical History: Reports: Hx Asthma Denies: Hx Tuberculosis Renal/ Medical History: Denies: Hx Peritoneal Dialysis GI Medical History: Reports: Hx Gastroesophageal Reflux Disease Musculoskeletal Medical History: Reports Hx Arthritis - psoriatic arthritis, Reports Hx Musculoskeletal Deformity Skin Medical History: Reports Hx Psoriasis Traumatic Medical History: Reports: Hx Fractures - right ankle Past Surgical History: Reports: Hx Cholecystectomy, Hx Orthopedic Surgery - ORIF right ankle -02/08/13 - Immunizations Hx Diphtheria, Pertussis, Tetanus Vaccination: Yes Vertical Provider Document - CONSTITUTIONAL Notes: PHYSICAL EXAMINATION: GENERAL: Well-appearing, well-nourished and in no acute distress. HEAD: Atraumatic, normocephalic. EYES: Pupils equal round and reactive to light, extraocular movements intact, conjunctiva are normal. ENT: Nares patent, oropharynx clear without exudates. Moist mucous membranes. NECK: Normal range of motion, supple without lymphadenopathy LUNGS: Breath sounds clear to auscultation bilaterally and equal. No wheezes rales or rhonchi. HEART: Regular rate and rhythm without murmurs ABDOMEN: Soft, nontender, nondistended abdomen. No guarding, no rebound. No masses appreciated. Female : deferred Musculoskeletal: Normal range of motion, no pitting or edema. No cyanosis. NEUROLOGICAL: Cranial nerves grossly intact. Normal speech, normal gait. Normal sensory, motor exams PSYCH: Normal mood, normal affect. SKIN: Warm, Dry, normal turgor, no rashes or lesions noted. - INFECTION CONTROL TRAVEL OUTSIDE OF THE [place] IN LAST 30 DAYS: No Course - Re-evaluation Re-evalutation: Patient was initially seen by provider in triage and has received 1 DuoNeb treatment and oral prednisone at the time of my evaluation. Her chest x-ray is unremarkable. Her lung sounds are clear and equal at this point. Patient reports she feels much improved. Patient will be discharged home in stable condition. The patient's emergency department workup and current diagnosis were explained to the patient and or family. Follow-up instructions were provided. Medications if prescribed were discussed. Instructions for when to return to the emergency department including specific worrisome symptoms were discussed with the patient and/or family. - Vital Signs Vital signs: Temp Pulse Resp BP Pulse Ox 98.4 F 105 H 24 H 140/92 H 97 12/03/18 15:31 12/03/18 15:31 12/03/18 15:31 12/03/18 15:31 12/03/18 15:31 Discharge - Discharge Clinical Impression: Wheezing, Bronchitis Condition: Stable Disposition: HOME, SELF-CARE Additional Instructions: You were seen for symptoms most consistent with bronchitis. This can take up to 12 weeks to fully resolve. This is generally due to a viral infection. Please follow-up with your primary doctor in the next 2-3 days. Take all medications as prescribed. Return if you develop worsening cough, vomiting, fever >100.4, pass out, begin coughing blood, or have any other symptoms that are concerning to you. Please use the medications prescribed today as directed. Prescriptions: Codeine Phosphate/Guaifenesin [Cheratussin AC Syrup] 10 ml PO QHS #120 ml Azithromycin 250 mg PO DAILY #4 tablet Prednisone [Deltasone 20 mg Tablet] 3 tab PO DAILY 4 Days #12 tablet Forms: Return to Work Referrals: CLEMENTINA HAWKINS FNP-C [NURSE PRACTITIONER] - Follow up as needed
[2018-12-03 21:51] VITALS: BP 145/97
--- NOTE | 2018-12-05 00:23 | EKG REPORT ---
SEVERITY:- NORMAL ECG - SINUS RHYTHM : Confirmed by: Gerhard Cruz 05-Dec-2018 00:22:26
== END 2018-12-03 21:34 | disposition home or self-care (01) ==
LOC: ER 15:05
DX: J45.909 Unspecified asthma, uncomplicated (principal); R05 Cough; R50.9 Fever, unspecified
CPT/HCPCS: 93005; 71046; 93010; Q0144; J7512; J7620; 94640; 99285

== ENCOUNTER 2019-10-15 14:24 | Emergency (ER) | payer MEDICAID ==
--- NOTE | 2019-10-15 16:47 | ER Document Report ---
ED General - General Chief Complaint: Shortness Of Breath Stated Complaint: CHEST PAIN,SHORTNESS OF BREATH Time Seen by Provider: 10/15/19 16:07 Primary Care Provider: HEATHER GALEANO MD [Primary Care Provider] - Follow up as needed Notes: HPI: 33-year-old female with past medical history of asthma who presents today with 3 days of some chest "pain" that is constant she states across her chest. No real aggravating relieving factors. Not exertional. She denies any and all shortness of breath, fevers, vomiting, loss of taste or smell, calf pain or leg swelling, recent trips or travel. She does state a mild nonproductive cough. ROS: See HPI All other review of systems reviewed and otherwise negative Reviewed vital signs and nursing note as charted by RN. PHYSICAL EXAM: CONSTITUTIONAL: Alert and oriented and responds appropriately to questions. Well-appearing; well-nourished HEAD: Normocephalic; atraumatic EYES: PERRL; Conjunctivae clear, sclerae non-icteric ENT: Normal nose; no rhinorrhea; moist mucous membranes; pharynx without lesions noted NECK: Supple without meningismus; non-tender; no cervical lymphadenopathy, no masses CARD: Regular rate and rhythm; tenderness to palpation of the anterior chest wall with no obvious swelling, erythema, or crepitus no murmurs; symmetric distal pulses RESP: Normal chest excursion without splinting or tachypnea; breath sounds clear and equal bilaterally; no wheezes, no rhonchi, no rales ABD/GI: Normal bowel sounds; non-distended; soft, non-tender BACK: The back appears normal and is non-tender to palpation EXT: Normal ROM in all joints; non-tender to palpation; no edema SKIN: No acute lesions noted NEURO: CN 2-12 intact; 5/5 bilateral upper and lower extremity strength with sensation intact to light touch PSYCH: The patient's mood and manner are appropriate. Grooming and personal hygiene are appropriate. TRAVEL OUTSIDE OF THE [place] IN LAST 30 DAYS: No - Related Data Allergies/Adverse Reactions: No Known Allergies Allergy (Verified 03/13/17 08:12) Home Medications: lisinopril, acetoloprim, citrizine, albuterol Past Medical History - Social History Smoking Status: Former Smoker Frequency of alcohol use: Rare Drug Abuse: None Family History: Reviewed & Not Pertinent Patient has homicidal ideation: No Pulmonary Medical History: Reports: Hx Asthma Denies: Hx Tuberculosis Renal/ Medical History: Denies: Hx Peritoneal Dialysis GI Medical History: Reports: Hx Gastroesophageal Reflux Disease Musculoskeletal Medical History: Reports Hx Arthritis - psoriatic arthritis, Reports Hx Musculoskeletal Deformity Skin Medical History: Reports Hx Psoriasis Traumatic Medical History: Reports: Hx Fractures - right ankle Past Surgical History: Reports: Hx Cholecystectomy, Hx Orthopedic Surgery - ORIF right ankle -02/08/13 - Immunizations Hx Diphtheria, Pertussis, Tetanus Vaccination: Yes Physical Exam - Vital signs Vitals: Temp Pulse Resp BP Pulse Ox 98.6 F 84 20 143/97 H 99 10/15/19 14:36 10/15/19 14:36 10/15/19 14:36 10/15/19 14:36 10/15/19 14:36 Course - Re-evaluation Re-evalutation: Given the above history and physical examination with vital signs as recorded, with tenderness upon palpation of the anterior chest wall, with no wheezing or rhonchi, satting 100% on room air, I do believe ACS, PE, dissection to be unlikely. I do not believe this is an asthma exacerbation. I do believe this is most likely costochondritis. I will obtain 1 set of cardiac enzymes as well as an EKG and an x-ray of the chest. 10/15/19 17:21 EKG shows heart of 79, normal sinus rhythm, normal axis, no ST elevation or depression. Labs and imaging as recorded. No change in exam. Patient has not tachypneic or hypoxic. The patient was evaluated during the global COVID-19 pandemic and that diagnosis was suspected/considered upon their initial presentation. Their evaluation, treatment and testing was consistent with current guidelines for patients who present with complaints or symptoms that may be related to COVID-19. 10/15/19 17:28 Troponin as recorded. No change in exam. Patient looks excellent. Vital signs are stable. - Vital Signs Vital signs: Temp Pulse Resp BP Pulse Ox 98.6 F 84 20 143/97 H 99 10/15/19 14:36 10/15/19 14:36 10/15/19 14:36 10/15/19 14:36 10/15/19 14:36 - Laboratory Result Diagrams: 10/15/19 16:40 10/15/19 16:40 Laboratory results interpreted by me: 10/15/19 10/15/19 16:40 16:40 MCV 79 L MCH 26.0 L RDW 14.3 H Glucose 113 H Discharge - Discharge Clinical Impression: Atypical chest pain Condition: Good Disposition: HOME, SELF-CARE Additional Instructions: Come back immediately for any worsening pain, change in location or quality of pain, persistent vomiting, calf pain or leg swelling, difficulty breathing or shortness of breath, or any other acute problems. Please take 2 puffs of albuterol inhaler every 4 hours for the next 6 hours as needed. Please follow- up with your primary care physician. Referrals: HEATHER GALEANO MD [Primary Care Provider] - Follow up as needed
[2019-10-15 16:56] LABS: ABSOLUTE BASOPHILS # (AUTO) 0.1 10^3/uL (0.0-0.2); ABSOLUTE EOSINOPHILS # (AUTO) 0.1 10^3/uL (0.0-0.6); ABSOLUTE LYMPHOCYTES (AUTO) 1.7 10^3/uL (0.5-4.7); ABSOLUTE MONOCYTES (AUTO) 0.5 10^3/uL (0.1-1.4); ABSOLUTE NEUT (AUTO) 6.2 10^3/uL (1.7-8.2); BASOPHILS % (AUTO) 1.1 % (0-2); EOSINOPHILS % (AUTO) 1.7 % (0-6); HEMATOCRIT 39.4 % (36.0-47.0); LYMPHOCYTES % (AUTO) 19.5 % (13-45); MEAN CORPUSCULAR HGB CONC 33.1 g/dL (32.0-36.0); MEAN CORPUSCULAR VOLUME 79 fl (80-97); MONOCYTES % (AUTO) 5.4 % (3-13); PLATELET COUNT 380 10^3/uL (150-450); RED BLOOD COUNT 5.01 10^6/uL (3.72-5.28); RED CELL DISTRIBUTION WIDTH 14.3 % (11.5-14.0); SEGMENTED NEUTROPHILS % (AUTO) 72.3 % (42-78); TOTAL CELLS COUNTED % (AUTO) 100 %; WHITE BLOOD COUNT 8.6 10^3/uL (4.0-10.5)
--- NOTE | 2019-10-15 17:11 | RADIOLOGY REPORT (SQ) ---
EXAM DESCRIPTION: CHEST SINGLE VIEW IMAGES COMPLETED DATE/TIME: 10/15/2019 4:42 pm REASON FOR STUDY: Chest pain COMPARISON: 12/03/2018. EXAM PARAMETERS: NUMBER OF VIEWS: One view. TECHNIQUE: Single frontal radiographic view of the chest acquired. RADIATION DOSE: NA LIMITATIONS: None. FINDINGS: LUNGS AND PLEURA: No opacities, masses or pneumothorax. No pleural effusion. MEDIASTINUM AND HILAR STRUCTURES: No masses. Contour normal. HEART AND VASCULAR STRUCTURES: Heart normal in size. Normal vasculature. BONES: No acute findings. HARDWARE: None in the chest. OTHER: No other significant finding. IMPRESSION: NO ACUTE RADIOGRAPHIC FINDING IN THE CHEST. TECHNICAL DOCUMENTATION: JOB ID: [id number] [employer]- All Rights Reserved Reading location - IP/workstation name: [email or web address]
[2019-10-15 17:13] LABS: ANION GAP 10 (5-19); BLOOD UREA NITROGEN 15 mg/dL (7-20); CARBON DIOXIDE 24 mmol/L (22-30); CHLORIDE 103 mmol/L (98-107); GLUCOSE 113 mg/dL (75-110)
[2019-10-15] MEDS ORDERED: IBUPROFEN 600 MG TABLET PO ONE (17:27)
[2019-10-15 18:00] VITALS: BP 140/105
--- NOTE | 2019-10-15 18:58 | EKG REPORT ---
SEVERITY:- NORMAL ECG - SINUS RHYTHM : Confirmed by: Samantha Israel MD 15-Oct-2019 18:58:05
== END 2019-10-15 18:05 | disposition home or self-care (01) ==
LOC: ER 14:24
DX: R07.89 Other chest pain (principal); R05 Cough; J45.909 Unspecified asthma, uncomplicated; Z79.899 Other long term (current) drug therapy; Z20.828 Contact with and (suspected) exposure to other viral communicable diseases; Z87.891 Personal history of nicotine dependence
CPT/HCPCS: 93005; 99285; 36415; 85025; 87635; 80048; 84484; 71045; 93010; J3490; C9803